=== PATIENT | male | born 1955 | race Caucasian/White ===

== ENCOUNTER 2016-08-16 19:49 | Inpatient (IN) | payer MEDICAID ==
[~2016-08-16] VITALS: Ht 165.1 cm; Wt 63.5 kg
[~2016-08-16 19:49] MED LIST: ABILIFY2 MG ORAL; AMPICILLIN2 GM IV; ASCORBIC ACID500 MG ORAL; BENADRYL25 M3 PO; BENADRYL25 MG GT; BENADRYL25 MG ORAL; CARBAMAZEP100 MG/5 M ORAL; CARBAMAZEPINE200 MG ORAL; CARBAMAZEPINE300 MG ORAL; DEPAKENE250 MG ORAL; DEPAKOTE ER250 MG ORAL; DOCUSATE SODIU100 MG ORAL; FEROSUL325 M1 GT; ISOPTO TEARS15 ML BOTH EYES; KEFLEX500 MG ORAL; LORAZEPAM2 MG/1 M4 ORAL; MAG-OXIDE400 M1 GT; MAGNESIUM OXID400 M1 ORAL; MILK OF MA400 MG/51 ORAL; MULTI-VITAMIN1 EACH PO; MULTIVITAMINS1 EAC2 ORAL; NUEDEXTA 20-101 EAC1 PO; SENNA8.6 M3 PO; SERTRALINE HCL50 MG ORAL; TEGRETOL XR200 MG GT; TYLENOL650 MG/20. ORAL; VITAMIN C500 M1 GT; VITAMIN C500 M1 ORAL; ZINC SULFATE220 M1 GT; ZOLOFT25 MG ORAL; ZOLOFT50 MG ORAL; ZYRTEC10 MG ORAL; [UNRECOGNIZED DRUG - CODE]
[2016-08-16] MEDS ORDERED: levETIRAcetam 500 MG in D5W 110 ML IVPB ONE (20:00)
[2016-08-16] MEDS ORDERED: levETIRAcetam 500mg vial IV ONE (21:22)
[2016-08-16 21:24] VITALS: BP 118/68
[2016-08-16 21:35] LABS: BASOPHILS % (AUTO) 1.3 % (0.0-2.0); EOSINOPHILS % (AUTO) 3.3 % (0.0-3.0); LYMPHOCYTES % (AUTO) 25.4 % (20.0-45.0); MEAN CORPUSCULAR HEMOGLOBIN 32.6 PG (27.0-31.0); MEAN CORPUSCULAR HGB CONC 35.3 G/DL (32.0-36.0); MEAN CORPUSCULAR VOLUME 92 FL (80-99); MEAN PLATELET VOLUME 4.8 FL (6.5-10.1); MONOCYTES % (AUTO) 12.8 % (1.0-10.0); NEUTROPHILS % (AUTO) 57.2 % (45.0-75.0); PLATELET COUNT 343 K/UL (150-450); RED BLOOD COUNT 4.24 M/UL (4.70-6.10); RED CELL DISTRIBUTION WIDTH 12.2 % (11.6-14.8); WHITE BLOOD COUNT 6.2 K/UL (4.8-10.8)
[2016-08-16 21:57] LABS: TROPONIN I < 0.30 ng/mL (<=0.30)
[2016-08-16 22:00] LABS: ALANINE AMINOTRANSFERASE 12 U/L (3-41); ALBUMIN/GLOBULIN RATIO 1.3 (1.0-2.7); ANION GAP 13 (5-15); ASPARTATE AMINO TRANSFERASE 16 U/L (5-40); CALCIUM 8.9 mg/dL (8.6-10.2); CARBON DIOXIDE 27 mEQ/L (20-30); CHLORIDE 94 mEQ/L (98-107); CREATININE 0.5 mg/dL (0.7-1.2); GLOMERULAR FILTRATION RATE > 60 mL/min (>60); HEMOLYSIS 4; POTASSIUM 4.1 mEQ/L (3.4-4.9); SODIUM 134 mEQ/L (135-145); TOTAL PROTEIN 6.6 g/dL (6.6-8.7)
[2016-08-16 22:10] LABS: CKMB 1.8 ng/mL (< 6.7)
[2016-08-16 22:30] VITALS: BP 118/70
--- NOTE | 2016-08-16 23:05 | Emergency Room Report ---
History of Present Illness General Chief Complaint: Seizure Source: Patient, Medical Record Present Illness HPI She presents with complaints of multiple seizures Patient himself is able to provide some history However not able to provide complete medical history History of present illness this is somewhat limited Patient denies any headache denies any chest pressure shortness of breath denies any fevers He does state that he has had more seizures than usual Denies any focal weakness denies any change in medications Allergies: Coded Allergies: CEFTRIAXONE (Verified Allergy, Intermediate, Rash, 04/04/16) PENICILLINS (Unverified Allergy, Unknown, 08/16/16) PHENYTOIN (Verified Allergy, Unknown, 04/27/15) Patient History Past Medical History: see triage record Pertinent Family History: none Reviewed Nursing Documentation: PMH: Agreed, PSxH: Agreed Nursing Documentation-PMH Past Medical History: No History, Except For Hx Hypertension: Yes Hx Pacemaker: No Hx Asthma: Yes Hx COPD: Yes Hx Diabetes: No Hx Cancer: No Hx Gastrointestinal Problems: Yes - spastic paralysis, frequent uti gerd History Of Psychiatric Problem: Yes - Psychosis Hx Neurological Problems: Yes - Dementia Hx Cerebrovascular Accident: Yes - TIA Hx Transient Ischemic Attacks: No Hx Dementia: No Hx Alzheimer's Disease: No Hx Parkinson's Disease: No Hx Meningitis: No Hx Encephalitis: No Hx Seizures: Yes Hx Epilepsy: Yes Hx Multiple Sclerosis: No Hx Cerebral Palsy: No Hx Amyotrophic Lat Sclerosis: No Hx Guillian-Christine Syndrome: No Hx Paralysis: No Hx Peripheral Neuropathy: No Hx Spinal Cord Injury: No Hx Head Trauma: No Hx Traumatic Brain Injury: Yes Hx Memory Loss: No Hx Concentration Difficulty: No Hx Tremors: No Hx Vertigo: No Hx Dizziness: No Hx Syncope: No Hx Headaches: No Hx Aphasia: No Hx Dysphasia: No Hx Numbness: No Hx Weakness: No Hx Fatigue: No Hx Neurologic Surgery: No Hx Brain Shunt: No Review of Systems All Other Systems: negative except mentioned in HPI Physical Exam Vital Signs Date Time Temp Pulse Resp B/P Pulse Ox O2 Delivery O2 Flow Rate FiO2 08/16/16 19:45 97.9 98 18 118/68 95 Room Air Sp02 EP Interpretation: reviewed, normal General Appearance: no apparent distress Head: normocephalic, atraumatic Eyes: bilateral eye EOMI, bilateral eye PERRL ENT: hearing grossly normal, normal pharynx, TMs + canals normal, uvula midline Neck: full range of motion, supple, no meningismus, no bony tend Respiratory: lungs clear, normal breath sounds, no rhonchi, no respiratory distress, no retraction, no accessory muscle use Cardiovascular #1: normal peripheral pulses, regular rate, rhythm, no edema, no gallop, no JVD, no murmur Gastrointestinal: normal bowel sounds, non tender, soft, no mass, no organomegaly, non-distended, no guarding, no hernia, no pulsatile mass, no rebound Genitourinary: no CVA tenderness Musculoskeletal: other - No obvious focal deficit, patient hours weak bilaterally in lower extremity Neurologic: oriented x3, responsive, sensory intact Psychiatric: mood/affect normal Skin: normal color, no rash, warm/dry, palpation normal Lymphatic: normal inspection, no adenopathy Medical Decision Making Diagnostic Impression: Primary Impression: Status epilepticus, generalized convulsive ER Course Multiple differentials considered Including but not limited to, neurological, neurosurgical, infectious pathology Patient's blood work is at baseline levels At this time patient was provided with Keppra IV as well Tegretol level appears to be appropriate Patient is admitted for further workup Labs Test 08/16/16 20:40 White Blood Count 6.2 K/UL (4.8-10.8) Red Blood Count 4.24 M/UL (4.70-6.10) Hemoglobin 13.8 G/DL (14.2-18.0) Hematocrit 39.1 % (42.0-52.0) Mean Corpuscular Volume 92 FL (80-99) Mean Corpuscular Hemoglobin 32.6 PG (27.0-31.0) Mean Corpuscular Hemoglobin Concent 35.3 G/DL (32.0-36.0) Red Cell Distribution Width 12.2 % (11.6-14.8) Platelet Count 343 K/UL (150-450) Mean Platelet Volume 4.8 FL (6.5-10.1) Neutrophils (%) (Auto) 57.2 % (45.0-75.0) Lymphocytes (%) (Auto) 25.4 % (20.0-45.0) Monocytes (%) (Auto) 12.8 % (1.0-10.0) Eosinophils (%) (Auto) 3.3 % (0.0-3.0) Basophils (%) (Auto) 1.3 % (0.0-2.0) Sodium Level 134 mEQ/L (135-145) Potassium Level 4.1 mEQ/L (3.4-4.9) Chloride Level 94 mEQ/L (98-107) Carbon Dioxide Level 27 mEQ/L (20-30) Anion Gap 13 (5-15) Blood Urea Nitrogen 10 mg/dL (7-23) Creatinine 0.5 mg/dL (0.7-1.2) Estimat Glomerular Filtration Rate > 60 mL/min (>60) Glucose Level 111 mg/dL (74-106) Calcium Level 8.9 mg/dL (8.6-10.2) Total Bilirubin < 0.2 mg/dL (0.0-1.2) Aspartate Amino Transf (AST/SGOT) 16 U/L (5-40) Alanine Aminotransferase (ALT/SGPT) 12 U/L (3-41) Alkaline Phosphatase 122 U/L (40-129) Total Creatine Kinase 34 U/L (38-174) Creatine Kinase MB 1.8 ng/mL (< 6.7) Creatine Kinase MB Relative Index 5.2 Troponin I < 0.30 ng/mL (<=0.30) Total Protein 6.6 g/dL (6.6-8.7) Albumin 3.8 g/dL (3.5-5.2) Globulin 2.8 g/dL Albumin/Globulin Ratio 1.3 (1.0-2.7) Carbamazepine (Tegretol) Level 8.9 ug/mL (4.0-12.0) EKG Diagnostic Results Rate: normal Rhythm: NSR ST Segments: other - nonspecific ST and T-wave changes Rhythm Strip Diag. Results EP Interpretation: yes Rate: 67 Rhythm: NSR, no PVC's, no ectopy Chest X-Ray Diagnostic Results EP Interpretation: Yes Findings: no consolidation, no effusion, no pneumothorax Number of Views: 1 CT/MRI/US Diagnostic Results CT/MRI/US Diagnostic Results : Impression CT head no acute disease Last Vital Signs Date Time Temp Pulse Resp B/P Pulse Ox O2 Delivery O2 Flow Rate FiO2 08/16/16 22:30 93 20 118/70 98 Room Air 08/16/16 21:24 97.9 Status: improved Disposition: ADMITTED INPATIENT Condition: Serious Referrals: [facility],REFERRING (PCP) MACY MELLO D.O. Aug 16, 2016 23:05
[2016-08-16 23:40] VITALS: BP 117/85
[2016-08-17] MEDS ORDERED: Nitroglycerin Subl 0.4mg tab (Bottle Of 25) SL PRN (03:15)
[2016-08-17] MEDS ORDERED: Haloperidol 5mg/ml Inj IM PRN (03:15)
[2016-08-17] MEDS ORDERED: Miralax 17gm pkt ORAL PRN (03:15)
[2016-08-17 04:00] VITALS: BP 130/71
[2016-08-17] MEDS: carBAMazepine 200mg tab ORAL SCH ×3 (06:45→21:59)
[2016-08-17 08:22] VITALS: BP 111/77
[2016-08-17] MEDS: Ascorbic Acid 500mg tab ORAL SCH ×2 (08:43→17:33)
[2016-08-17] MEDS: Nuedexta Capsule 20/10mg ORAL SCH ×2 (08:44→21:59)
[2016-08-17] MEDS: Magnesium Oxide 400mg tab ORAL SCH ×3 (08:45→17:33)
[2016-08-17] MEDS: Docusate 100mg cap ORAL SCH ×2 (08:45→17:33)
[2016-08-17] MEDS: Heparin 5000 units/ml inj SUBQ SCH ×2 (08:46→22:02)
--- NOTE | 2016-08-17 09:09 | Diagnostic Imaging Report ---
Indication: Seizure Technique: Continuous helical CT scanning of the head was performed without intravenous contrast material. Axial and coronal 5 mm sections were generated. Radiation dose was minimized using automated exposure control Dose: Total Dose Length Product - DLP [address] Dose Index - CTDIvol(s) 70.38 mGy. Comparison: None Findings: There is mild age-related enlargement of the ventricles and extra-axial CSF spaces.. There is no shift of midline structures. No abnormal extra-axial fluid collections are noted. There is no evidence of intracerebral bleeding. No other abnormal high or low density areas are noted within the brain. There is some scalp soft tissue thickening in the left high parietal region. The calvarium is intact. The sinuses are unremarkable. Impression: Mild age-related changes Negative for acute intracranial bleed or mass effect Scalp soft tissue swelling. Correlate with any history of recent trauma This agrees with the preliminary interpretation provided overnight by Dr. Trinidad The CT scanner at [facility] is accredited by the [employer] and the scans are performed using protocols designed to limit radiation exposure to as low as reasonably achievable to attain images of sufficient resolution adequate for diagnostic evaluation.
[2016-08-17 09:59] LABS: BASOPHILS % (AUTO) 1.2 % (0.0-2.0); EOSINOPHILS % (AUTO) 4.9 % (0.0-3.0); LYMPHOCYTES % (AUTO) 26.8 % (20.0-45.0); MEAN CORPUSCULAR HEMOGLOBIN 30.7 PG (27.0-31.0); MEAN CORPUSCULAR HGB CONC 33.5 G/DL (32.0-36.0); MEAN CORPUSCULAR VOLUME 92 FL (80-99); MEAN PLATELET VOLUME 5.4 FL (6.5-10.1); MONOCYTES % (AUTO) 11.6 % (1.0-10.0); NEUTROPHILS % (AUTO) 55.6 % (45.0-75.0); PLATELET COUNT 340 K/UL (150-450); RED BLOOD COUNT 4.16 M/UL (4.70-6.10); RED CELL DISTRIBUTION WIDTH 12.1 % (11.6-14.8); WHITE BLOOD COUNT 5.1 K/UL (4.8-10.8)
[2016-08-17 10:23] LABS: ALANINE AMINOTRANSFERASE 10 U/L (3-41); ALBUMIN/GLOBULIN RATIO 1.2 (1.0-2.7); ANION GAP 15 (5-15); ASPARTATE AMINO TRANSFERASE 12 U/L (5-40); CALCIUM 9.3 mg/dL (8.6-10.2); CARBON DIOXIDE 25 mEQ/L (20-30); CHLORIDE 96 mEQ/L (98-107); CREATININE 0.3 mg/dL (0.7-1.2); GLOMERULAR FILTRATION RATE > 60 mL/min (>60); HEMOLYSIS 0; SODIUM 136 mEQ/L (135-145); TOTAL PROTEIN 6.2 g/dL (6.6-8.7)
[2016-08-17 11:20] VITALS: BP 112/78
--- NOTE | 2016-08-17 12:40 | Diagnostic Imaging Report ---
Indication: Chest pain Technique: One view of the chest Comparison: 04/26/2016 Findings: Lungs and pleural spaces are clear. The heart size is normal. Aorta is tortuous. Upper mediastinum is unremarkable. Old healed rib fractures are again demonstrated. Findings are unchanged Impression: No acute process This agrees with the preliminary interpretation provided by the emergency room physician
[2016-08-17 15:53] VITALS: BP 130/76
[2016-08-17] MEDS: Docusate 100mg tablet NG SCH (18:00)
[2016-08-17] MEDS: Morphine Sulfate 2mg/ml Inj IVP PRN (18:28)
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
[2016-08-17 20:00] VITALS: BP 121/87
--- NOTE | 2016-08-17 23:58 | History and Physical Report ---
DATE OF ADMISSION: 08/16/2016 HISTORY OF PRESENT ILLNESS: The patient has been transferred from the longterm and admitted to the ER because of refractory seizures. The patient had multiple seizures despite being on seizure medications. The patient also has cough. Being a poor historian, cannot rely upon this patient's history. PAST MEDICAL HISTORY: Dementia, psychosis, hyperlipidemia, seizure disorder, GERD, history of hypertension. PAST SURGICAL HISTORY: Denies . MEDICATIONS: Refer to medication reconciliation chart. ALLERGIES: allergies in the chart. SOCIAL HISTORY: Unable to obtain. FAMILY HISTORY: Noncontributory . REVIEW OF SYSTEMS: Unable to obtain, very poor historian. PHYSICAL EXAMINATION: VITAL SIGNS: Temperature is 97.4 degrees, pulse 80, BP . HEENT: PERRLA. NECK: Supple. No lymphadenopathy. CHEST: Clear to auscultation. GASTROINTESTINAL: Soft, nontender, and nondistended. No organomegaly. EXTREMITIES: No edema. Reflexes are equal on both sides. NEUROLOGIC: Does not follow LABORATORY AND DIAGNOSTIC DATA: WBC 6, hemoglobin 15.6, 8.9. ASSESSMENT AND PLAN: Multiple seizures despite being on seizure medications, possible signs of dehydration as well. PLAN: I have asked Dr. Messina, Dr. Gonzalez, Dr. Flynn, Dr. Manrique, and Dr. Hurt see the patient for aspiration and rule out UTI, or other source of infection as well as for dehydration and for seizure control. The patient is also coughing and . Maureen Atkins M.D. DR: David JOB#: [id number] CC:
[2016-08-18] VITALS: BP 114/80
[2016-08-18 04:00] VITALS: BP 122/63
[2016-08-18] MEDS: carBAMazepine 200mg tab ORAL SCH ×3 (05:55→21:11)
[2016-08-18 07:58] VITALS: BP 113/74
[2016-08-18] MEDS: Magnesium Oxide 400mg tab ORAL SCH ×3 (08:57→17:46)
[2016-08-18] MEDS: Nuedexta Capsule 20/10mg ORAL SCH ×2 (08:57→21:00)
[2016-08-18] MEDS: Docusate 100mg tablet NG SCH ×2 (08:57→17:46)
[2016-08-18] MEDS: Ascorbic Acid 500mg tab ORAL SCH ×2 (08:57→17:46)
[2016-08-18] MEDS: Heparin 5000 units/ml inj SUBQ SCH ×2 (08:58→21:00)
--- NOTE | 2016-08-18 10:19 | General Progress Note ---
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 - Other specified paralytic syndromes SNOMED: 923373284 (5) r/o nonconvulsive seizure activity Status: progressing Assessment/Plan afebrile no uti sizure hyponatremia refractory sz Subjective ROS Limited/Unobtainable: Yes Constitutional: Reports: no symptoms Allergies: Coded Allergies: CEFTRIAXONE (Verified Allergy, Intermediate, Rash, 04/04/16) PENICILLINS (Unverified Allergy, Unknown, 08/16/16) PHENYTOIN (Verified Allergy, Unknown, 04/27/15) Objective Last 24 Hour Vital Signs Date Time Temp Pulse Resp B/P Pulse Ox O2 Delivery O2 Flow Rate FiO2 08/18/16 07:58 97.9 90 19 113/74 96 Room Air 08/18/16 04:00 97.2 84 18 122/63 93 Room Air 08/18/16 00:00 97.7 86 18 114/80 94 Room Air 08/17/16 20:00 98.1 86 20 121/87 96 Room Air 08/17/16 15:53 98.2 74 20 130/76 99 Room Air 08/17/16 11:20 97.5 86 14 112/78 96 Room Air Intake and Output 08/17/16 08/18/16 19:00 07:00 Intake Total 770 ml 1180 ml Balance 770 ml 1180 ml Intake Oral 0 ml 480 ml IV Total 770 ml 700 ml # Voids 1 4 Height (Feet): 5 Height (Inches): 5.00 Weight (Pounds): 140 EENT: PERRL/EOMI Neck: supple Cardiovascular: normal rate Respiratory/Chest: lungs clear Abdomen: soft Maureen Atkins MD Aug 18, 2016 10:19
[2016-08-18 11:45] VITALS: BP 111/70
[2016-08-18 16:00] VITALS: BP 130/62
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
[2016-08-18 20:00] VITALS: BP 127/61
[2016-08-18] MEDS ORDERED: Haloperidol 5mg/ml Inj IM PRN (20:45)
[2016-08-18] MEDS: levETIRAcetam 500mg/5ml Liquid ORAL SCH (21:00)
[2016-08-18] MEDS: OLANZapine 2.5mg tab ORAL SCH (21:00)
--- NOTE | 2016-08-18 23:18 | Consultation ---
DATE OF CONSULTATION: HISTORY OF PRESENT ILLNESS: This is a 61-year-old male with a history of dementia, psychosis, hyperlipidemia, seizure disorder, GERD, and hypertension, who has been admitted to the hospital for refractory seizure. The patient has been also noncompliant with medication. He is a poor historian and unable to be engaged during the evaluation. He is also very hard of hearing. During the evaluation, he kept his eyes closed and coughing in the middle of the evaluation. He was more engaged. He is presenting with disorganized speech and behavior and impairment in concentration and memory. He is also endorsing disorganized speech. He was disoriented and confused. PAST PSYCHIATRIC HISTORY: He has a history of psychotic disorder, dementia, unknown in regards to the psychiatrist hospitalization, and suicide attempt. PAST MEDICAL HISTORY: Includes hyperlipidemia, seizure disorder, gastroesophageal reflux disease, and hypertension. ALLERGIES: No known drug allergies. SUBSTANCE USE HISTORY: Unknown. SOCIAL HISTORY: The patient resides in a alf. MENTAL STATUS EXAMINATION: Alert and oriented times self. Disoriented. Mood is neutral. Affect is constricted. Congruent mood. Thought process is concrete. Thought content, positive for delusions. Cognition is impaired. ASSESSMENT: [place] I Psychotic disorder. [place] II Deferred. [place] III Seizure disorder. [place] IV Low. [place] V Global assessment of functioning is 25. PLAN: 1. The patient will be started on Zyprexa. 2. He will be continued on Haldol p.r.n. 3. Decrease the dosage of to 2.5 every four hours IM for agitation. Jeff Hurt M.D. DR: KENNEY JOB#: [id number] CC:
[2016-08-19] VITALS: BP 126/91
[2016-08-19 04:00] VITALS: BP 118/81
[2016-08-19] MEDS: carBAMazepine 200mg tab ORAL SCH ×3 (05:50→21:20)
[2016-08-19 08:15] VITALS: BP 137/66
[2016-08-19] MEDS: Magnesium Oxide 400mg tab ORAL SCH ×3 (08:50→17:38)
[2016-08-19] MEDS: Ascorbic Acid 500mg tab ORAL SCH ×2 (08:51→17:38)
[2016-08-19] MEDS: Nuedexta Capsule 20/10mg ORAL SCH ×2 (08:51→21:19)
[2016-08-19] MEDS: Docusate 100mg tablet NG SCH ×2 (08:51→17:39)
[2016-08-19] MEDS: levETIRAcetam 500mg/5ml Liquid ORAL SCH ×2 (08:52→21:20)
[2016-08-19] MEDS: Heparin 5000 units/ml inj SUBQ SCH ×2 (08:52→21:26)
--- NOTE | 2016-08-19 10:47 | General Progress Note ---
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 SNOMED: 771026080 (5) r/o nonconvulsive seizure activity Status: progressing Assessment/Plan moniter for seizure reviwed chart and labs sizure hyponatremia refractory sz Subjective ROS Limited/Unobtainable: Yes Constitutional: Reports: no symptoms Allergies: Coded Allergies: CEFTRIAXONE (Verified Allergy, Intermediate, Rash, 04/04/16) PENICILLINS (Unverified Allergy, Unknown, 08/16/16) PHENYTOIN (Verified Allergy, Unknown, 04/27/15) Objective Last 24 Hour Vital Signs Date Time Temp Pulse Resp B/P Pulse Ox O2 Delivery O2 Flow Rate FiO2 08/19/16 08:15 97.9 81 19 137/66 97 Room Air 08/19/16 04:00 97.3 85 16 118/81 94 Room Air 08/19/16 00:00 97.7 104 16 126/91 94 Room Air 08/18/16 20:00 97.0 79 18 127/61 96 Room Air 08/18/16 16:00 96.9 84 17 130/62 95 Room Air 08/18/16 11:45 97.9 107 21 111/70 95 Room Air Intake and Output 08/18/16 08/19/16 19:00 07:00 Intake Total 1320 ml 610 ml Balance 1320 ml 610 ml Intake Oral 480 ml 400 ml IV Total 840 ml 210 ml # Voids 3 5 Height (Feet): 5 Height (Inches): 5.00 Weight (Pounds): 140 General Appearance: confused Cardiovascular: normal rate Respiratory/Chest: lungs clear Abdomen: soft Maureen Atkins MD Aug 19, 2016 10:47
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
[2016-08-19 11:51] VITALS: BP 111/72
[2016-08-19] MEDS: Morphine Sulfate 2mg/ml Inj IVP PRN ×2 (13:38→17:38)
[2016-08-19 16:00] VITALS: BP 112/77
[2016-08-19 19:00] VITALS: BP 122/71
[2016-08-19] MEDS: OLANZapine 2.5mg tab ORAL SCH (21:19)
[2016-08-20] VITALS: BP 114/78
[2016-08-20 04:00] VITALS: BP 116/71
[2016-08-20] MEDS: carBAMazepine 200mg tab ORAL SCH ×2 (06:10→13:34)
[2016-08-20 07:59] VITALS: BP 93/62
[2016-08-20] MEDS: Docusate 100mg tablet NG SCH (09:10)
[2016-08-20] MEDS: Heparin 5000 units/ml inj SUBQ SCH (09:10)
[2016-08-20] MEDS: Ascorbic Acid 500mg tab ORAL SCH (09:15)
[2016-08-20] MEDS: Nuedexta Capsule 20/10mg ORAL SCH (09:16)
[2016-08-20] MEDS: levETIRAcetam 500mg/5ml Liquid ORAL SCH (09:16)
[2016-08-20] MEDS: Magnesium Oxide 400mg tab ORAL SCH ×2 (09:16→13:00)
[2016-08-20] MEDS: Morphine Sulfate 2mg/ml Inj IVP PRN (10:29)
[2016-08-20 11:56] VITALS: BP 102/64
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
[2016-08-20] MEDS ORDERED: 1/2 NS 1000ml IV ONE (15:58)
--- NOTE | 2016-08-23 13:55 | Discharge Summary ---
Discharge Summary Hospital Course Date of Admission Aug 16, 2016 at 21:14 Date of Discharge Aug 20, 2016 at 15:59 Admitting Diagnosis intractible seizure HPI Tacho Walker is a 61 year old male who was admitted on Aug 16, 2016 at 21: 14 for Intractable Seizure Hospital Course dc summary dictated #[id number] Discharge Medications Continued Medications: Acetaminophen (Acetaminophen) 650 Mg/20.3 Ml Soln 650 MG ORAL EVERY 4 HOURS PRN for Pain Scale (3-5), ML 0 Refills Ascorbic Acid* (Ascorbic Acid*) 500 Mg Tablet 500 MG ORAL TWICE A DAY, TAB Ascorbic Acid* (Vitamin C*) 500 Mg Tablet 500 MG GT DAILY, #30 TAB 0 Refills Carbamazepine (Tegretol Xr) 200 Mg Tab.er.12h 300 MG GT EVERY 12 HOURS, #60 TAB 0 Refills Carbamazepine* (Carbamazepine*) 200 Mg Tablet 300 MG ORAL Q8HR, TAB Dextromethorphan Hbr/Quinidine (Nuedexta 20-10 Mg Capsule) 1 Each Capsule 1 EACH PO EVERY 12 HOURS, CAP Diphenhydramine HCl (Benadryl) 25 Mg Capsule 25 MG PO Q4HR PRN for Itching, CAP Diphenhydramine Hcl* (Benadryl*) 25 Mg Capsule 25 MG GT Q6H PRN for Itching, CAP Docusate Sodium* (Docusate Sodium*) 100 Mg Capsule 100 MG ORAL TWICE A DAY, CAP Ferrous Sulfate (Ferosul) 325 Mg Tablet 325 MG GT, TAB Magnesium Oxide (Magnesium Oxide) 400 Mg Tablet 400 MG ORAL TID, #30 TAB 0 Refills Magnesium Oxide (Mag-Oxide) 400 Mg Tablet 400 MG GT, TAB Zinc Sulfate (Zinc Sulfate*) 220 Mg Capsule 220 MG GT DAILY, CAP 0 Refills Discharge Condition Upon Discharge: stable Discharge Disposition Patient was discharged to SNF Discharge Diagnoses: Discharge Instructions Discharge Instructions Special Instructions I have been assigned to complete a D/C Summary on this account. I was not involved in the patient management Malgorzata Merchant NP (Vanchtein) Aug 23, 2016 13:54
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
--- NOTE | 2016-08-24 14:55 | Cardiology Report ---
APPROVED REPORT EKG Measurement Heart [id number] Normal sinus rhythm Normal ECG
== END 2016-08-20 15:59 | DRG 53 ==
LOC: EDBD 19:49 → EMR 21:13 → 4E 21:14 → EDBEDREQ 22:35
DX: G40.411 Other generalized epilepsy and epileptic syndromes, intractable, with status epilepticus (principal); E87.1 Hypo-osmolality and hyponatremia; F03.90 Unspecified dementia, unspecified severity, without behavioral disturbance, psychotic disturbance, mood disturbance, and anxiety; G83.89 Other specified paralytic syndromes; N39.0 Urinary tract infection, site not specified; F20.9 Schizophrenia, unspecified; R26.89 Other abnormalities of gait and mobility; Z91.14 Patient's other noncompliance with medication regimen; E78.5 Hyperlipidemia, unspecified; K21.9 Gastro-esophageal reflux disease without esophagitis; Z88.1 Allergy status to other antibiotic agents; Z88.0 Allergy status to penicillin; Z88.8 Allergy status to other drugs, medicaments and biological substances; Z87.828 Personal history of other (healed) physical injury and trauma; Z66 Do not resuscitate
CPT/HCPCS: 36415; 70450; 71010; 80053; 80156; 80299; 82550; 82553; 84484; 85025; 93005

== ENCOUNTER 2017-03-02 20:12 | Emergency (ER) | payer MEDICAID ==
[~2017-03-02] VITALS: Ht 170.2 cm; Wt 62.1 kg
[2017-03-02 20:45] VITALS: BP 147/97
[2017-03-02 21:16] LABS: BASOPHILS % (AUTO) 1.7 % (0.0-2.0); EOSINOPHILS % (AUTO) 4.6 % (0.0-3.0); LYMPHOCYTES % (AUTO) 30.6 % (20.0-45.0); MEAN CORPUSCULAR HEMOGLOBIN 33.3 PG (27.0-31.0); MEAN CORPUSCULAR HGB CONC 35.8 G/DL (32.0-36.0); MEAN CORPUSCULAR VOLUME 93 FL (80-99); MEAN PLATELET VOLUME 4.7 FL (6.5-10.1); MONOCYTES % (AUTO) 9.9 % (1.0-10.0); NEUTROPHILS % (AUTO) 53.2 % (45.0-75.0); PLATELET COUNT 365 K/UL (150-450); RED BLOOD COUNT 4.27 M/UL (4.70-6.10); RED CELL DISTRIBUTION WIDTH 12.1 % (11.6-14.8); WHITE BLOOD COUNT 5.7 K/UL (4.8-10.8)
[2017-03-02 21:52] LABS: ALANINE AMINOTRANSFERASE 14 U/L (3-41); ALBUMIN/GLOBULIN RATIO 1.5 (1.0-2.7); ANION GAP 11 (5-15); ASPARTATE AMINO TRANSFERASE 18 U/L (5-40); CALCIUM 9.7 mg/dL (8.6-10.2); CARBAMAZEPINE (TEGRETOL) 8.3 ug/mL (4.0-12.0); CARBON DIOXIDE 28 mEQ/L (20-30); CHLORIDE 94 mEQ/L (98-107); CREATININE 0.4 mg/dL (0.7-1.2); GLOMERULAR FILTRATION RATE > 60 mL/min (>60); HEMOLYSIS 22; POTASSIUM 4.2 mEQ/L (3.4-4.9); SODIUM 133 mEQ/L (135-145); TOTAL PROTEIN 7.1 g/dL (6.6-8.7)
[2017-03-02 22:10] VITALS: BP 144/87
[2017-03-02 23:06] VITALS: BP 138/89
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
--- NOTE | 2017-03-03 13:42 | Cardiology Report ---
APPROVED REPORT EKG Measurement Heart [id number] Normal sinus rhythm Septal infarct, age undetermined Abnormal ECG
== END 2017-03-02 23:06 ==
LOC: EDBD 20:12 → EMR 21:09
DX: R56.9 Unspecified convulsions (principal); Z88.0 Allergy status to penicillin; Z88.8 Allergy status to other drugs, medicaments and biological substances; I10 Essential (primary) hypertension; J44.9 Chronic obstructive pulmonary disease, unspecified; J45.909 Unspecified asthma, uncomplicated; K21.9 Gastro-esophageal reflux disease without esophagitis; F03.90 Unspecified dementia, unspecified severity, without behavioral disturbance, psychotic disturbance, mood disturbance, and anxiety; Z86.73 Personal history of transient ischemic attack (TIA), and cerebral infarction without residual deficits; Z86.69 Personal history of other diseases of the nervous system and sense organs
CPT/HCPCS: 36415; 80053; 80156; 82962; 85025; 93005; 99283

== ENCOUNTER 2017-04-03 02:05 | Emergency (ER) | payer MEDICAID ==
[~2017-04-03] VITALS: Ht 165.1 cm; Wt 62.1 kg
[2017-04-03] MEDS ORDERED: DULCOLAX10 MG RC (02:14)
[2017-04-03] MEDS ORDERED: CRANBERRY450 M4 PO (02:14)
[2017-04-03] MEDS ORDERED: MULTIVITAMINS1 EAC2 ORAL (02:14)
[2017-04-03] MEDS ORDERED: MILK OF MA400 MG/51 ORAL (02:14)
[2017-04-03] MEDS ORDERED: Morphine Sulfate 4mg/ml Inj IVP ONE (02:30)
--- NOTE | 2017-04-03 02:37 | Emergency Room Report ---
History of Present Illness General Chief Complaint: Male Urogenital Problems Source: Patient, Medical Record Present Illness HPI This is a 62-year-old male from a residential. Has history of psychosis and dementia. He presents with hematuria. He now has incontinence of his urine. A Turner was placed and now has gross hematuria. He was sent here for evaluation. Denies any other complaint. Patient complaining of suprapubic pain. No new trauma. No fever chills or Allergies: Coded Allergies: CEFTRIAXONE (Verified Allergy, Intermediate, Rash, 04/04/16) PENICILLINS (Unverified Allergy, Unknown, 08/16/16) PHENYTOIN (Verified Allergy, Unknown, 04/27/15) Patient History Past Medical History: see triage record, old chart reviewed Past Surgical History: other Pertinent Family History: none Social History: Denies: smoking Immunizations: other Reviewed Nursing Documentation: PMH: Agreed, PSxH: Agreed Nursing Documentation-PMH Hx Cardiac Problems: Yes - hyperlipidemia Hx Hypertension: Yes Hx Pacemaker: No Hx Asthma: Yes Hx COPD: Yes Hx Diabetes: No Hx Cancer: No Hx Gastrointestinal Problems: Yes - CERD History Of Psychiatric Problem: Yes - schizo,depression Hx Neurological Problems: Yes Hx Transient Ischemic Attacks: Yes Hx Dementia: Yes Hx Alzheimer's Disease: No Hx Parkinson's Disease: No Hx Meningitis: No Hx Encephalitis: No Hx Seizures: Yes Hx Epilepsy: Yes Hx Multiple Sclerosis: No Hx Cerebral Palsy: No Hx Amyotrophic Lat Sclerosis: No Hx Guillian-Canaan Syndrome: No Hx Paralysis: No Hx Peripheral Neuropathy: No Hx Spinal Cord Injury: No Hx Head Trauma: No Hx Traumatic Brain Injury: Yes Hx Memory Loss: No Hx Concentration Difficulty: No Hx Tremors: No Hx Vertigo: No Hx Dizziness: No Hx Syncope: No Hx Headaches: No Hx Aphasia: No Hx Dysphasia: No Hx Numbness: No Hx Weakness: No Hx Fatigue: No Hx Neurologic Surgery: No Hx Brain Shunt: No Review of Systems Eye: Denies: eye pain, blurred vision ENT: Denies: ear pain, nose congestion, throat swelling Respiratory: Denies: cough, shortness of breath Cardiovascular: Denies: chest pain, palpitations Gastrointestinal: Denies: abdominal pain, diarrhea, nausea, vomiting Genitourinary: Reports: hematuria Musculoskeletal: Denies: back pain, joint pain Skin: Denies: rash Neurological: Denies: headache, numbness Endocrine: Denies: increased thirst, increased urine Hematologic/Lymphatic: Denies: easy bruising All Other Systems: negative except mentioned in HPI Physical Exam Vital Signs Date Time Temp Pulse Resp B/P (MAP) Pulse Ox O2 Delivery O2 Flow Rate FiO2 04/03/17 01:53 98.1 108 16 137/78 95 Room Air vitals normal except for tachycardia Sp02 EP Interpretation: reviewed, normal General Appearance: well appearing, no apparent distress, alert Head: normocephalic, atraumatic Eyes: bilateral eye PERRL, bilateral eye EOMI ENT: hearing grossly normal, normal pharynx Neck: full range of motion, supple, no meningismus Respiratory: chest non-tender, lungs clear, normal breath sounds Cardiovascular #1: regular rate, rhythm, no murmur Gastrointestinal: normal bowel sounds, non tender, no mass, no organomegaly, no bruit, non-distended Genitourinary: other - Turner with gross hematuria Musculoskeletal: back normal, gait/station normal, normal range of motion Psychiatric: mood/affect normal Skin: warm/dry Medical Decision Making Diagnostic Impression: Primary Impression: Hematuria Qualified Codes: R31.9 - Hematuria, unspecified Additional Impression: UTI (urinary tract infection) Qualified Codes: N30.01 - Acute cystitis with hematuria ER Course She presents with hematuria. Is probably secondary to trauma of Turner insertion. Nursing staff irrigate the Turner aneurysm mom clots. Cleared up early. No evidence of any obstruction. He may have urinary tract infection. He grew out Proteus in sensitive to Keflex. We'll put him on it. No adverse affect from cephalosporin. Last Vital Signs Date Time Temp Pulse Resp B/P (MAP) Pulse Ox O2 Delivery O2 Flow Rate FiO2 04/03/17 01:53 98.1 108 16 137/78 95 Room Air Status: improved Disposition: XFER SNF Condition: Stable Scripts Cephalexin* (KEFLEX*) 500 Mg Capsule 500 MG ORAL TID, #21 CAP 0 Refills Prov: NIKUNJ PAIGE M.D. 04/03/17 Referrals: Maureen Atkins MD (PCP) Patient Instructions: Urinary Tract Infection Additional Instructions: Followup with your Dr. in 2 to 3 days. Return if symptom worsen. NIKUNJ PAIGE M.D. Apr 03, 2017 02:37
[2017-04-03 03:21] LABS: APPEARANCE,URINE VERY CLOUDY; KETONES,URINE NEGATIVE (NEGATIVE); LEUKOCYTE ESTERASE ,URINE 2+ (NEGATIVE); NITRITE,URINE POSITIVE (NEGATIVE); PH,URINE 7 (4.5-8.0); PROTEIN,URINE 4+ (NEGATIVE); UROBILINOGEN,URINE NORMAL MG/DL (0.0-1.0)
[2017-04-03] MEDS ORDERED: Ertapenem 1 GM in NS 55 ML IV ONE (03:30)
[2017-04-03 03:31] LABS: BACTERIA,URINE FEW /HPF; RBC,URINE TNTC /HPF (0 - 0); SQUAMOUS EPITHELIAL CELL,UR OCCASIONAL /LPF (NONE/OCC)
[2017-04-03] MEDS ORDERED: Ertapenem (INVanz) Inj ONE (03:33)
[2017-04-03] MEDS ORDERED: KEFLEX500 MG ORAL (03:46)
[2017-04-03 04:27] VITALS: BP 137/78
== END 2017-04-03 04:28 ==
LOC: EDBD 02:05 → EMR 02:28
DX: R31.9 Hematuria, unspecified (principal); N39.0 Urinary tract infection, site not specified; I10 Essential (primary) hypertension; E78.5 Hyperlipidemia, unspecified; J44.9 Chronic obstructive pulmonary disease, unspecified; K21.9 Gastro-esophageal reflux disease without esophagitis
CPT/HCPCS: 51702; 81003; 96374; 96375; 99284; J1335; J2270; J2405